=== PATIENT | male | born 1960 | race Caucasian/White ===

== ENCOUNTER 2022-05-06 19:55 | Emergency (ER) | payer OTHER ==
[~2022-05-06] VITALS: Ht 182.9 cm; Wt 106.6 kg
[2022-05-06] MEDS ORDERED: PREDNISONE 20 MG TAB PO ONE (20:30)
[2022-05-06] MEDS ORDERED: PREDNISONE20 MG PO (20:35)
[2022-05-06] MEDS ORDERED: ULTRAM 50MG50 MG PO (20:36)
[2022-05-06] MEDS ORDERED: PREDNISONE 20 MG TAB ONE (20:37)
== END 2022-05-06 21:10 | disposition home or self-care (01) ==
LOC: FSED 20:12
DX: M25.521 Pain in right elbow (principal); M77.01 Medial epicondylitis, right elbow; I10 Essential (primary) hypertension; M10.9 Gout, unspecified
CPT/HCPCS: 99283; J7512